=== PATIENT | male | born 1990 | race Caucasian/White ===

== ENCOUNTER 2017-06-30 12:17 | Emergency (ER) | payer SELFPAY ==
[~2017-06-30] VITALS: Ht 185.4 cm; Wt 56.5 kg
[~2017-06-30 12:17] MED LIST: PRIL20CA PO
[2017-06-30 12:19] VITALS: BP 151/97; PULSE 86; RESP 15; TEMP 98; O2SAT 97
--- NOTE | 2017-06-30 12:38 | PD ---
HPI Chief Complaint: Dizziness Time Seen by Provider: 12:35 Travel History International Travel<30 days: No Contact w/Intl Traveler<30days: No Traveled to known affect area: No History of Present Illness HPI This is a 27-year-old male who presents to the emergency department with lightheadedness and dizziness that's been going on for 1 week, intermittent, coming for about 1-2 minutes per day and then subsiding, more persistent today. He was at the rule x-ray cyst today and said he get checked out because his symptoms were more constant. He denies any chest pain or shortness of breath. He has no medical history. He has no family history of early sudden . [facility] Past Medical History Medical History: Denies Significant Hx Social History Alcohol Use: Yes (drinks one cocktail a day) Tobacco Use: No Allergies-Medications (Allergen,Severity, Reaction): Coded Allergies: No Known Allergies (Unverified Adverse Reaction, Unknown, 06/30/17) Reported Meds & Prescriptions Reported Meds & Active Scripts Active Review of Systems Except as stated in HPI: all other systems reviewed are Neg Physical Exam Narrative GENERAL:Well appearing, no acute distress SKIN: Focused skin assessment warm and dry. HEAD: Atraumatic. Normocephalic. EYES: Pupils equal and round. No injection or drainage. ENT: Moist mucous membranes NECK: Trachea midline. CARDIOVASCULAR: Regular rate and rhythm. No murmur appreciated. RESPIRATORY: Clear to auscultation. Breath sounds equal bilaterally. GASTROINTESTINAL: Abdomen soft, non-tender, nondistended. MUSCULOSKELETAL: No obvious deformities. NEUROLOGICAL: Awake and alert. No obvious cranial nerve deficits. Moving all extremities. PSYCHIATRIC: Appropriate mood and affect; insight and judgment normal. Data Data Last Documented VS Vital Signs Date Time Temp Pulse Resp B/P (MAP) Pulse Ox O2 Delivery O2 Flow Rate FiO2 06/30/17 15:05 06/30/17 12:19 98.0 86 15 97 Orders Orders Electrocardiogram (06/30/17 ) Complete Blood Count With Diff (06/30/17 12:35) Comprehensive Metabolic Panel (06/30/17 12:35) ^ Insert Iv (06/30/17 12:35) Thyroid Stimulating Hormone (06/30/17 12:35) Ed Discharge Order (06/30/17 14:27) Labs Laboratory Tests Test 06/30/17 13:02 White Blood Count 5.7 TH/MM3 Red Blood Count 4.80 MIL/MM3 Hemoglobin 15.6 GM/DL Hematocrit 45.3 % Mean Corpuscular Volume 94.4 FL Mean Corpuscular Hemoglobin 32.6 PG Mean Corpuscular Hemoglobin Concent 34.5 % Red Cell Distribution Width 12.2 % Platelet Count 210 TH/MM3 Mean Platelet Volume 8.5 FL Neutrophils (%) (Auto) 59.6 % Lymphocytes (%) (Auto) 27.9 % Monocytes (%) (Auto) 9.0 % Eosinophils (%) (Auto) 2.3 % Basophils (%) (Auto) 1.2 % Neutrophils # (Auto) 3.4 TH/MM3 Lymphocytes # (Auto) 1.6 TH/MM3 Monocytes # (Auto) 0.5 TH/MM3 Eosinophils # (Auto) 0.1 TH/MM3 Basophils # (Auto) 0.1 TH/MM3 CBC Comment DIFF FINAL Differential Comment Blood Urea Nitrogen 11 MG/DL Creatinine 1.04 MG/DL Random Glucose 90 MG/DL Total Protein 8.2 GM/DL Albumin 4.7 GM/DL Calcium Level 9.0 MG/DL Alkaline Phosphatase 83 U/L Aspartate Amino Transf (AST/SGOT) 55 U/L Alanine Aminotransferase (ALT/SGPT) 80 U/L Total Bilirubin 0.6 MG/DL Sodium Level 137 MEQ/L Potassium Level 3.8 MEQ/L Chloride Level 102 MEQ/L Carbon Dioxide Level 29.6 MEQ/L Anion Gap 5 MEQ/L Estimat Glomerular Filtration Rate 86 ML/MIN Thyroid Stimulating Hormone 3rd Gen 2.020 uIU/ML MDM Medical Decision Making Medical Screen Exam Complete: Yes Emergency Medical Condition: Yes Interpretation(s) Afebrile, no tachycardia, hypertensive No leukocytosis Electrolytes are reassuring TSH is normal Differential Diagnosis Arrhythmia, heart block, electrolyte abnormality, hyperthyroidism Narrative Course This is a 27-year-old male who presents to the emergency department with palpitations and lightheadedness been going on intermittently for one week. Patient was placed on a monitor and an IV was established. EKG is reassuring. He has some mild transaminitis on labs but otherwise his blood work appears normal. I think patient can safely be discharged to follow-up with his primary care provider. He may be having intermittent arrhythmia and I asked him to follow-up to obtain a Holter monitor. Diagnosis Primary Impression: Lightheadedness Patient Instructions: General Instructions Additional Instructions: If you develop severe chest pain, shortness of breath, sweating, lightheadedness , dizziness or difficulty breathing return to the emergency department immediately. Followup with your primary care physician in 2-3 days if your symptoms are not resolved. Your liver tests are slightly elevated. You should have been followed by your primary care physician. Med/Other Pt SpecificInfo: No Change to Meds Disposition: 01 DISCHARGE HOME Condition: Stable Karen Romero MD Jun 30, 2017 12:38
[2017-06-30 13:34] LABS: AUTOMATED NEUTROPHIL # 3.4 TH/MM3 (1.8-7.7); BASOPHIL # 0.1 TH/MM3 (0-0.2); BASOPHIL % 1.2 % (0.0-2.0); EOSINOPHIL # 0.1 TH/MM3 (0-0.4); EOSINOPHIL % 2.3 % (0.0-4.0); HEMATOCRIT 45.3 % (39.0-51.0); HEMOGLOBIN 15.6 GM/DL (13.0-17.0); LYMPH % 27.9 % (9.0-44.0); LYMPHOCYTE # 1.6 TH/MM3 (1.0-4.8); MEAN CELL VOLUME 94.4 FL (80.0-100.0); MEAN CORPUSCULAR HEMOGLOBIN 32.6 PG (27.0-34.0); MEAN CORPUSCULAR HGB CONC 34.5 % (32.0-36.0); MEAN PLATELET VOLUME 8.5 FL (7.0-11.0); MONOCYTE # 0.5 TH/MM3 (0-0.9); NEUT % 59.6 % (16.0-70.0); PLATELET COUNT 210 TH/MM3 (150-450); RED CELL DISTRIBUTION WIDTH 12.2 % (11.6-17.2); WHITE BLOOD COUNT 5.7 TH/MM3 (4.0-11.0)
[2017-06-30 14:06] LABS: ALBUMIN 4.7 GM/DL (3.4-5.0); ALT (GPT) 80 U/L (12-78); AST (GOT) 55 U/L (15-37); BICARBONATE 29.6 MEQ/L (21.0-32.0); BLOOD UREA NITROGEN 11 MG/DL (7-18); CHLORIDE 102 MEQ/L (98-107); CREATININE 1.04 MG/DL (0.60-1.30); GLOMERULAR FILTRATION RATE 86 ML/MIN (>89); GLUCOSE,RANDOM 90 MG/DL (74-106); SODIUM (NA) 137 MEQ/L (136-145)
[2017-06-30 14:09] LABS: ALKALINE PHOSPHATASE 83 U/L (45-117); TOTAL BILIRUBIN ADULT 0.6 MG/DL (0.2-1.0); TOTAL PROTEIN 8.2 GM/DL (6.4-8.2)
--- NOTE | 2017-07-01 10:25 | EKG ---
Date Performed: 06/30/2017 Time Performed: 12:38:36 PTAGE: 27 years EKG: Sinus rhythm NORMAL ECG NO PREVIOUS TRACING DOCTOR: Dandre Crowe Interpretating Date/Time 07/01/2017 10:24:11
== END 2017-06-30 15:00 | disposition home or self-care (01) ==
LOC: NEPD 12:17
DX: R42 Dizziness and giddiness (principal)
CPT/HCPCS: 80053; 84443; 85025; 93005; 99284